=== PATIENT | male | born 1965 ===

== ENCOUNTER 2019-03-03 09:13 | Outpatient (CLI) | payer OTHER ==
[2019-03-03 10:38] LABS: Hematocrit 46.2 % (35.5-45.6); Hemoglobin 15.6 gm/dl (11.8-15.2); Mean Corpuscular HGB Conc 34 % (32-34); Mean Corpuscular Volume 84 fl (84-94); Platelet Count 331 K/mm3 (140-440); Red Cell Distribution Width 13.3 % (13.2-15.2)
[2019-03-03 10:54] LABS: Alanine Aminotransferase 43 units/L (7-56); Albumin 4.7 g/dL (3.9-5); BUN/Creatinine Ratio 16; Blood Urea Nitrogen 11 mg/dL (9-20); Calcium 9.5 mg/dL (8.4-10.2); Chol/HDL Ratio 4.83 %; HDL Cholesterol 43 mg/dL (40-59); Hemolysis Index 4; LDL Cholesterol,Direct 160 mg/dL (50-130)
[2019-03-06 09:09] LABS: Vitamin D, 25-OH, D2 9 ng/mL
== END 2019-03-03 09:14 | disposition home or self-care (01) ==
LOC: LAB 09:13
PROVIDERS: ATTEND Internal Medicine
DX: I10 Essential (primary) hypertension (principal); E78.5 Hyperlipidemia, unspecified; R73.9 Hyperglycemia, unspecified
CPT/HCPCS: 36415; 80053; 80061; 82306; 82607; 83036; 84443; 85027